=== PATIENT | male | born 1945 | race Caucasian/White ===

== ENCOUNTER 2020-10-07 10:13 | Observation (INO) | payer MEDICARE, BC ==
--- NOTE | 2020-10-07 10:28 | EDM.PDOC ---
ED HPI GENERAL MEDICAL PROBLEM - General Chief Complaint: Chest Pain Stated Complaint: CHEST PAIN Time Seen by Provider: 10/07/20 10:25 Source of Information: Reports: Patient History Limitations: Reports: No Limitations - History of Present Illness INITIAL COMMENTS - FREE TEXT/NARRATIVE: Patient is a 75-year-old male who presents today for left-sided chest pain. Patient is to get this morning he medical to the gym when he felt the pain in his chest rating to his left arm and left jaw. Patient she took Tylenol carvedilol and aspirin the pain subsided. Patient states that deep breath made the pain worse. Patient denies any current chest pain now fever chills nausea vomiting or complaints. Chest Pain Score (Numeric/FACES): 4 - Related Data Allergies Allergy/AdvReac Type Severity Reaction Status Date / Time venom-honey bee Allergy Swelling Verified 10/07/20 10:26 [bee venom (honey bee)] Home Meds: Home Meds Acetaminophen [Pain Reliever] 1 tab PO PRN 08/04/14 [History] EPINEPHrine [Epipen Jr 2-Stephen] 1 injection IM ASDIRECTED 08/04/14 [History] Multivitamin with Minerals [Multiple Vitamin] 1 tab PO DAILY 08/04/14 [History] Omeprazole [Prilosec] 1 tab PO DAILY PRN 08/04/14 [History] Aspirin [Children's Aspirin] 1 tab PO DAILY 04/02/16 [History] Ibuprofen 2 tab PO DAILY PRN 04/02/16 [History] Past Medical History HEENT History: Reports: Impaired Vision Gastrointestinal History: Reports: GERD Oncologic (Cancer) History: Reports: Prostate - Infectious Disease History Infectious Disease History: Reports: Mumps - Past Surgical History Male Surgical History: Reports: Prostatectomy Social & Family History - Family History Family Medical History: No Pertinent Family History - Caffeine Use Caffeine Use: Reports: Coffee ED ROS GENERAL - Review of Systems Review Of Systems: See Below Constitutional: Reports: No Symptoms HEENT: Reports: No Symptoms Respiratory: Reports: No Symptoms Cardiovascular: Reports: Chest Pain Endocrine: Reports: No Symptoms GI/Abdominal: Reports: No Symptoms : Reports: No Symptoms Musculoskeletal: Reports: No Symptoms Skin: Reports: No Symptoms Neurological: Reports: No Symptoms Psychiatric: Reports: No Symptoms Hematologic/Lymphatic: Reports: No Symptoms Immunologic: Reports: No Symptoms ED EXAM, GENERAL - Physical Exam Exam: See Below Exam Limited By: No Limitations General Appearance: Alert, WD/WN, No Apparent Distress Respiratory/Chest: No Respiratory Distress, Lungs Clear, Normal Breath Sounds Cardiovascular: Normal Peripheral Pulses, Regular Rate, Rhythm GI/Abdominal: Normal Bowel Sounds, Soft, Non-Tender Extremities: Normal Inspection Neurological: Alert, Oriented, CN II-XII Intact, Normal Cognition, Normal Gait #1 Interpretation EKG Date: 10/07/20 Time: 10:20 Rhythm: NSR Rate (Beats/Min): 58 QT: Normal Course - Vital Signs Last Recorded V/S: Last Vital Signs Temp 98.6 F 10/07/20 10:26 Pulse 59 L 10/07/20 11:22 Resp 16 10/07/20 11:22 BP 113/67 10/07/20 11:22 Pulse Ox 95 10/07/20 11:22 - Orders/Labs/Meds Orders: Active Orders 24 hr Category Date Time Status Patient Status [ADT] Routine ADT 10/07/20 11:53 Ordered CORONAVIRUS COVID-19 WALTER [MOLEC] Stat Lab 10/07/20 11:35 Received Labs: Laboratory Tests 10/07/20 10/07/20 10/07/20 Range/Units 10:50 10:50 10:50 WBC 3.73 L (4.0-11.0) K/uL RBC 4.58 (4.50-5.90) M/uL Hgb 14.5 (13.0-17.0) g/dL Hct 42.1 (38.0-50.0) % MCV 91.9 (80.0-98.0) fL MCH 31.7 (27.0-32.0) pg MCHC 34.4 (31.0-37.0) g/dL RDW Std Deviation 44.7 (28.0-62.0) fl RDW Coeff of Brenden 13 (11.0-15.0) % Plt Count 180 (150-400) K/uL MPV 9.40 (7.40-12.00) fL Add Manual Diff YES Neutrophils % (Manual) 54 (48.0-80.0) % Band Neutrophils % 2 % Lymphocytes % (Manual) 30 (16.0-40.0) % Monocytes % (Manual) 10 (0.0-15.0) % Eosinophils % (Manual) 2 (0.0-7.0) % Basophils % (Manual) 2 H (0.0-1.5) % Nucleated RBC % 0.0 /100WBC Absolute Seg Neuts 2.0 (1.4-5.7) Band Neutrophils # 0.1 Lymphocytes # (Manual) 1.1 (0.6-2.4) Monocytes # (Manual) 0.4 (0.0-0.8) Eosinophils # (Manual) 0.1 (0.0-0.7) Basophils # (Manual) 0.1 (0.0-0.1) Nucleated RBCs # 0 K/uL Platelet Estimate ADEQUATE Clumped Platelets FEW INR 1.04 APTT 25.2 (18.6-31.3) SEC Sodium 138 (136-148) mmol/L Potassium 4.4 (3.5-5.1) mmol/L Chloride 106 (98-107) mmol/L Carbon Dioxide 24.0 (21.0-32.0) mmol/L BUN 16 (7.0-18.0) mg/dL Creatinine 1.1 (0.8-1.3) mg/dL Est Cr Clr Drug Dosing 61.80 mL/min Estimated GFR (MDRD) > 60.0 ml/min Glucose 112 H (74-106) mg/dL Calcium 8.3 L (8.5-10.1) mg/dL Phosphorus 2.7 (2.6-4.7) mg/dL Magnesium 2.0 (1.8-2.4) mg/dL Total Bilirubin 0.5 (0.2-1.0) mg/dL AST 19 (15-37) IU/L ALT 21 (14-63) IU/L Alkaline Phosphatase 51 (46-116) U/L Creatine Kinase 99 (26-308) U/L Troponin I < 0.050 (0.000-0.056) ng/mL Total Protein 6.7 (6.4-8.2) g/dL Albumin 3.2 L (3.4-5.0) g/dL Globulin 3.5 (2.6-4.0) g/dL Albumin/Globulin Ratio 0.9 (0.9-1.6) Lipase 89 (73-393) U/L - Re-Assessments/Exams Free Text/Narrative Re-Assessment/Exam: 10/07/20 11:55 Patient initial tropes are negative. Patient remains chest free. Due to risk factors patient will be admitted for observation. Departure - Departure Time of Disposition: 11:54 Disposition: Admitted As Inpatient 66 Condition: Good Clinical Impression: Chest pain Instructions: Chest Wall Pain, [id number] Referrals: Benji Cassidy MD [Primary Care Provider] - Forms: ED Department Discharge Sepsis Event Note (ED) - Focused Exam Vital Signs: Vital Signs Temp Pulse Resp BP Pulse Ox 10/07/20 11:22 59 L 16 113/67 95 10/07/20 11:07 59 L 16 128/74 96 10/07/20 10:36 58 L 16 133/72 95 10/07/20 10:26 98.6 F 60 16 152/81 H 96 - My Orders Last 24 Hours: My Active Orders 10/07/20 11:35 CORONAVIRUS COVID-19 WALTER [MOLEC] Stat 10/07/20 11:53 Patient Status [ADT] Routine - Assessment/Plan Last 24 Hours: My Active Orders 10/07/20 11:35 CORONAVIRUS COVID-19 WALTER [MOLEC] Stat 10/07/20 11:53 Patient Status [ADT] Routine Plan: Patient is a 75-year-old male who presents today for left-sided chest pain radiating to his left arm. Patient currently has no chest pain. Score is a 5 just for story age and risk factors. Patient likely troponins and admission.
[2020-10-07 11:29] LABS: BLOOD UREA NITROGEN,BUN 16 mg/dL (7.0-18.0); CHLORIDE,CL 106 mmol/L (98-107); GLUCOSE RANDOM 112 mg/dL (74-106); LIPASE 89 U/L (73-393); POTASSIUM,K 4.4 mmol/L (3.5-5.1); SODIUM,NA 138 mmol/L (136-148)
--- NOTE | 2020-10-07 11:36 | CR ---
INDICATION: Left-sided chest pain TECHNIQUE: Chest 2 views COMPARISON: 12/14/2010 FINDINGS: Cardiovascular and mediastinum: Heart size and vasculature are normal in caliber and appearance. Lungs and pleural spaces: Lungs are clear. No sign of infiltrate or mass. No sign of pleural effusion. No pneumothorax. Bones and soft tissues: No acute findings. There are old left-sided rib fractures which are unchanged. IMPRESSION: No acute findings and no significant changes from the prior exam. Dictated by Luis Foreman MD @ Oct 07 2020 11:33AM Signed by Dr. Luis Foreman @ Oct 07 2020 11:35AM
[2020-10-07] MEDS ORDERED: Ondansetron 4 MG/2 ML SDV IVPUSH PRN (14:13)
[2020-10-07] MEDS ORDERED: Sodium Chloride 0.9% 2.5 ML Syringe FLUSH PRN (14:13)
[2020-10-07] MEDS ORDERED: Docusate Sodium 100 MG Cap PO PRN (14:13)
[2020-10-07 14:33] LABS: HEMOGLOBIN A1C 5.9 %
[2020-10-07] MEDS ORDERED: Fluticasone Propionate Nasal Spray 16 GM Bottle NASBOTH PRN (15:08)
[2020-10-07] MEDS ORDERED: Albuterol 8 GM Inhaler INH PRN (15:15)
--- NOTE | 2020-10-07 15:25 | PCM.HP.2 ---
H&P History of Present Illness - General Date of Service: 10/07/20 Admit Problem/Dx: Admission Diagnosis/Problem Admission Diagnosis/Problem Chest pain made worse by breathing Source of Information: Patient History Limitations: Reports: No Limitations - History of Present Illness Initial Comments - Free Text/Narative: This 75-year-old male with past medical history of GERD, prostate cancer status post prostatectomy, and COPD presented to the ER with complaints of left-sided chest pain. He reports that he woke up and started getting ready to go to the gym this morning when he started having left-sided chest pain that radiated to his left arm and left jaw. He reports this pain has been ongoing intermittently for the last couple weeks but felt today he needed to be evaluated. He reports the pain came on suddenly when he was at. Located in L upper chest. Some what reproducible with movement of L arm. Does not seem like it worsens with activity and has not noticed the chest pain while working out. He denies any shortness of breath nausea or diaphoresis. He reported that he just felt" off". He reports he had a stress test approximately 4 years ago and was sent to consumer affairs manager Dr. Neville who started him on a statin, aspirin and a beta- trish. He reports that he had calcium deposits noted in his arteries on heart scan. He reports he is currently chest pain-free. He recently had code vaccinations in both his left and right arm, no residual side effects. He denies any fevers chills neck pain. No palpitations or shortness of breath. No abdominal pain black or bloody bowel movements and no dysuria. He reports that he was a smoker for over 45 years but quit quite a few years back. Denies any recreational drug use or alcohol use. In the ER white count normal hemoglobin 14.5 hematocrit 42.1. Platelets 180,000. INR 1.04. Sodium 138 potassium 4.4. BUN 16 creatinine 1.1 calcium 8.3 phosphorus 2.7. Troponin negative lipase 89 Covid swab negative chest x-ray negative for any acute cardiopulmonary process. In the ER vitals were stable heart rates mid to high 50s blood pressures 120-140/70s. EKG sinus rhythm with no ST-T wave changes suggestive of ischemic changes. He will be admitted for chest pain rule out ACS. PCP Dr. Cassidy Viticulturist Dr. Neville Chest Pain Score (Numeric/FACES): 4 - Related Data Allergies/Adverse Reactions: Allergies Allergy/AdvReac Type Severity Reaction Status Date / Time Iodinated Contrast Media Allergy Rash Verified 10/07/20 15:25 venom-honey bee Allergy Swelling Verified 10/07/20 10:26 [bee venom (honey bee)] Home Medications: Home Meds Albuterol Sulfate [Albuterol Sulfate HFA] 1 puff INH ASDIRECTED 10/07/20 [History] Budesonide/Formoterol Fumarate [Budesonide-Formoterol 160-4.5] 1 puff INH BID 10/07/20 [History] Fluticasone Propionate 2 spray NASBOTH DAILY PRN 10/07/20 [History] Pravastatin [Pravachol] 20 mg PO BEDTIME 10/07/20 [History] carvediloL [Carvedilol] 3.125 mg PO BID 10/07/20 [History] Past Medical History HEENT History: Reports: Impaired Vision Cardiovascular History: Reports: High Cholesterol, Hypertension. Denies: Afib, Blood Clots/VTE/DVT, CAD, VT, Stents Respiratory History: Reports: COPD. Denies: Sleep Apnea (recent sleep study, did not need CPAP) Gastrointestinal History: Reports: GERD Genitourinary History: Reports: None Musculoskeletal History: Reports: Arthritis Neurological History: Reports: None. Denies: CVA, TIA Psychiatric History: Reports: None Endocrine/Metabolic History: Reports: None. Denies: Diabetes, Type II, Hypothyroidism Hematologic History: Reports: None Immunologic History: Reports: None Oncologic (Cancer) History: Reports: Prostate Dermatologic History: Reports: Eczema - Infectious Disease History Infectious Disease History: Reports: Chicken Pox, Mumps, Shingles - Past Surgical History HEENT Surgical History: Reports: Cataract Surgery Male Surgical History: Reports: Prostatectomy Endocrine Surgical History: Reports: None Neurological Surgical History: Reports: None Musculoskeletal Surgical History: Reports: None Dermatological Surgical History: Reports: None Social & Family History - Family History Family Medical History: No Pertinent Family History - Tobacco Use Tobacco Use Status *Q: Never Tobacco User Used Tobacco, but Quit: Yes Month/Year Tobacco Last Used: 1984 - Caffeine Use Caffeine Use: Reports: Coffee - Recreational Drug Use Recreational Drug Use: No H&P Review of Systems - Review of Systems: Review Of Systems: See Below General: Reports: No Symptoms. Denies: Fever, Chills, Malaise, Weakness HEENT: Reports: No Symptoms. Denies: Headaches, Sinus Congestion, Sore Throat, Vertigo Pulmonary: Reports: No Symptoms. Denies: Shortness of Breath Cardiovascular: Reports: Chest Pain (now chest pain free). Denies: Palpitations, Edema, Lightheadedness, Syncope Gastrointestinal: Reports: No Symptoms. Denies: Abdominal Pain, Black Stool, Bloody Stool, Nausea, Vomiting Genitourinary: Reports: No Symptoms. Denies: Dysuria, Frequency, Burning Musculoskeletal: Reports: No Symptoms. Denies: Neck Pain Skin: Reports: No Symptoms Psychiatric: Reports: No Symptoms. Denies: Confusion Neurological: Reports: No Symptoms. Denies: Confusion Hematologic/Lymphatic: Reports: No Symptoms Immunologic: Reports: No Symptoms Exam - Exam Exam: See Below - Vital Signs Vital Signs: Last Vital Signs Temp 96.9 F 10/07/20 14:13 Pulse 57 L 10/07/20 14:13 Resp 16 10/07/20 14:13 BP 147/85 H 10/07/20 14:13 Pulse Ox 98 10/07/20 14:13 Weight: 108.2 kg - Exam General: Alert, Oriented, Cooperative HEENT: Conjunctiva Clear, Mucosa Moist & [place], Posterior Pharynx Clear Lungs: Clear to Auscultation, Normal Respiratory Effort Cardiovascular: Regular Rate, Regular Rhythm, Normal S1, Normal S2. No: Irregular Rhythm, Systolic Murmur GI/Abdominal Exam: Normal Bowel Sounds, Soft, Non-Tender Extremities: Normal Inspection, Normal Range of Motion, Non-Tender, No Pedal Edema Skin: Warm, Dry Neuro Extensive - Mental Status: Alert, Oriented x3 Neuro Extensive - Motor, Sensory, Reflexes: CN II-XII Intact Psychiatric: Alert, Normal Affect, Normal Mood - Patient Data Lab Results Last 24 hrs: Laboratory Results - last 24 hr 10/07/20 10/07/20 10/07/20 Range/Units 10:50 10:50 10:50 WBC 3.73 L (4.0-11.0) K/uL RBC 4.58 (4.50-5.90) M/uL Hgb 14.5 (13.0-17.0) g/dL Hct 42.1 (38.0-50.0) % MCV 91.9 (80.0-98.0) fL MCH 31.7 (27.0-32.0) pg MCHC 34.4 (31.0-37.0) g/dL RDW Std Deviation 44.7 (28.0-62.0) fl RDW Coeff of Brenden 13 (11.0-15.0) % Plt Count 180 (150-400) K/uL MPV 9.40 (7.40-12.00) fL Add Manual Diff YES Neutrophils % (Manual) 54 (48.0-80.0) % Band Neutrophils % 2 % Lymphocytes % (Manual) 30 (16.0-40.0) % Monocytes % (Manual) 10 (0.0-15.0) % Eosinophils % (Manual) 2 (0.0-7.0) % Basophils % (Manual) 2 H (0.0-1.5) % Nucleated RBC % 0.0 /100WBC Absolute Seg Neuts 2.0 (1.4-5.7) Band Neutrophils # 0.1 Lymphocytes # (Manual) 1.1 (0.6-2.4) Monocytes # (Manual) 0.4 (0.0-0.8) Eosinophils # (Manual) 0.1 (0.0-0.7) Basophils # (Manual) 0.1 (0.0-0.1) Nucleated RBCs # 0 K/uL Platelet Estimate ADEQUATE Clumped Platelets FEW INR 1.04 APTT 25.2 (18.6-31.3) SEC Sodium 138 (136-148) mmol/L Potassium 4.4 (3.5-5.1) mmol/L Chloride 106 (98-107) mmol/L Carbon Dioxide 24.0 (21.0-32.0) mmol/L BUN 16 (7.0-18.0) mg/dL Creatinine 1.1 (0.8-1.3) mg/dL Est Cr Clr Drug Dosing 61.80 mL/min Estimated GFR (MDRD) > 60.0 ml/min Glucose 112 H (74-106) mg/dL Hemoglobin A1c (4.5 - 6.2) % Calcium 8.3 L (8.5-10.1) mg/dL Phosphorus 2.7 (2.6-4.7) mg/dL Magnesium 2.0 (1.8-2.4) mg/dL Total Bilirubin 0.5 (0.2-1.0) mg/dL AST 19 (15-37) IU/L ALT 21 (14-63) IU/L Alkaline Phosphatase 51 (46-116) U/L Creatine Kinase 99 (26-308) U/L Troponin I < 0.050 (0.000-0.056) ng/mL Total Protein 6.7 (6.4-8.2) g/dL Albumin 3.2 L (3.4-5.0) g/dL Globulin 3.5 (2.6-4.0) g/dL Albumin/Globulin Ratio 0.9 (0.9-1.6) Lipase 89 (73-393) U/L SARS-CoV-2 RNA ([facility]TER) (NEGATIVE) 10/07/20 10/07/20 10/07/20 Range/Units 10:50 11:35 13:51 WBC (4.0-11.0) K/uL RBC (4.50-5.90) M/uL Hgb (13.0-17.0) g/dL Hct (38.0-50.0) % MCV (80.0-98.0) fL MCH (27.0-32.0) pg MCHC (31.0-37.0) g/dL RDW Std Deviation (28.0-62.0) fl RDW Coeff of Brenden (11.0-15.0) % Plt Count (150-400) K/uL MPV (7.40-12.00) fL Add Manual Diff Neutrophils % (Manual) (48.0-80.0) % Band Neutrophils % % Lymphocytes % (Manual) (16.0-40.0) % Monocytes % (Manual) (0.0-15.0) % Eosinophils % (Manual) (0.0-7.0) % Basophils % (Manual) (0.0-1.5) % Nucleated RBC % /100WBC Absolute Seg Neuts (1.4-5.7) Band Neutrophils # Lymphocytes # (Manual) (0.6-2.4) Monocytes # (Manual) (0.0-0.8) Eosinophils # (Manual) (0.0-0.7) Basophils # (Manual) (0.0-0.1) Nucleated RBCs # K/uL Platelet Estimate Clumped Platelets INR APTT (18.6-31.3) SEC Sodium (136-148) mmol/L Potassium (3.5-5.1) mmol/L Chloride (98-107) mmol/L Carbon Dioxide (21.0-32.0) mmol/L BUN (7.0-18.0) mg/dL Creatinine (0.8-1.3) mg/dL Est Cr Clr Drug Dosing mL/min Estimated GFR (MDRD) ml/min Glucose (74-106) mg/dL Hemoglobin A1c 5.9 (4.5 - 6.2) % Calcium (8.5-10.1) mg/dL Phosphorus (2.6-4.7) mg/dL Magnesium (1.8-2.4) mg/dL Total Bilirubin (0.2-1.0) mg/dL AST (15-37) IU/L ALT (14-63) IU/L Alkaline Phosphatase (46-116) U/L Creatine Kinase 98 (26-308) U/L Troponin I < 0.050 (0.000-0.056) ng/mL Total Protein (6.4-8.2) g/dL Albumin (3.4-5.0) g/dL Globulin (2.6-4.0) g/dL Albumin/Globulin Ratio (0.9-1.6) Lipase (73-393) U/L SARS-CoV-2 RNA (WALTER) NEGATIVE (NEGATIVE) Result Diagrams: 10/07/20 10:50 10/07/20 10:50 Sepsis Event Note - Evaluation Sepsis Screening Result: No Definite Risk - Focused Exam Vital Signs: Vital Signs Temp Pulse Resp BP Pulse Ox 10/07/20 14:13 96.9 F 57 L 16 147/85 H 98 10/07/20 13:30 96.9 F 52 L 18 147/71 H 97 10/07/20 12:23 52 L 16 122/68 94 L 10/07/20 11:46 54 L 16 127/71 94 L 10/07/20 11:22 59 L 16 113/67 95 10/07/20 11:07 59 L 16 128/74 96 10/07/20 10:36 58 L 16 133/72 95 10/07/20 10:26 98.6 F 60 16 152/81 H 96 - Problem List (1) Chest pain SNOMED Code(s): 93727548 ICD Code: R07.9 - CHEST PAIN, UNSPECIFIED Status: Acute Current Visit: Yes (2) HTN (hypertension) SNOMED Code(s): 26390900 ICD Code: I10 - ESSENTIAL (PRIMARY) HYPERTENSION Status: Chronic Current Visit: Yes (3) HLD (hyperlipidemia) SNOMED Code(s): 23632509 ICD Code: E78.5 - HYPERLIPIDEMIA, UNSPECIFIED Status: Chronic Current Visit: Yes (4) COPD (chronic obstructive pulmonary disease) SNOMED Code(s): 11541448 ICD Code: J44.9 - CHRONIC OBSTRUCTIVE PULMONARY DISEASE, UNSPECIFIED Status: Chronic Current Visit: Yes (5) GERD (gastroesophageal reflux disease) SNOMED Code(s): 034390478 ICD Code: K21.9 - GASTRO-ESOPHAGEAL REFLUX DISEASE WITHOUT ESOPHAGITIS Status: Chronic Current Visit: Yes Problem List Initiated/Reviewed/Updated: Yes Orders Last 24hrs: Active Orders 24 hr Category Date Time Status Patient Status [ADT] Routine ADT 10/07/20 11:53 Active Antiembolic Devices [RC] PER UNIT ROUTINE Care 10/07/20 14:14 Active Intake and Output [RC] Q12H Care 10/07/20 14:13 Active Telemetry Monitoring [Cardiac Monitoring] [RC] Q8H Care 10/07/20 14:12 Active Up With Assistance [RC] ASDIRECTED Care 10/07/20 14:13 Active VTE/DVT Education [RC] PER UNIT ROUTINE Care 10/07/20 14:13 Active Vital Signs [RC] Q4H Care 10/07/20 14:13 Active Heart Healthy Diet [DIET] Diet 10/07/20 Lunch Active BASIC METABOLIC PANEL,BMP [CHEM] AM Lab 10/08/20 05:11 Ordered CBC WITH AUTO DIFF [HEME] AM Lab 10/08/20 05:11 Ordered LIPID PANEL [CHEM] AM Lab 10/08/20 05:11 Ordered MAGNESIUM [CHEM] AM Lab 10/08/20 05:11 Ordered Acetaminophen [TylenoL] Med 10/07/20 14:13 Active 650 mg PO Q4H PRN Albuterol Sulfate Med 10/07/20 15:15 Ordered 1 puff INH ASDIRECTED Aspirin [Halfprin] Med 10/08/20 09:00 Ordered 81 mg PO DAILY Docusate Sodium [Colace] Med 10/07/20 14:13 Active 100 mg PO BID PRN Fluticasone Propionate [Flonase] Med 10/07/20 15:08 Ordered 2 spray NASBOTH DAILY PRN Ondansetron [Zofran] Med 10/07/20 14:13 Active 4 mg IVPUSH Q4H PRN Pravastatin Med 10/07/20 21:00 Ordered 20 mg PO BEDTIME Sodium Chloride 0.9% [Saline Flush] Med 10/07/20 14:13 Active 2.5 ml FLUSH ASDIRECTED PRN carvediloL [Coreg] Med 10/07/20 21:00 Ordered 3.125 mg PO BID Saline Lock Insert [OM.PC] Routine Oth 10/07/20 14:13 Ordered Sequential Compression Device [OM.PC] Per Unit Routine Oth 10/07/20 14:13 Ordered Resuscitation Status Routine Resus Stat 10/07/20 15:08 Ordered Medication Orders Acetaminophen (Acetaminophen 325 Mg Tab) 650 mg PO Q4H PRN PRN Reason: Pain (Mild 1-3)/fever Aspirin (Aspirin 81 Mg Tab.Ec) 81 mg PO DAILY [place] Carvedilol (Carvedilol 3.125 Mg Tab) 3.125 mg PO BID [place] Docusate Sodium (Docusate Sodium 100 Mg Cap) 100 mg PO BID PRN PRN Reason: Constipation Fluticasone Propionate (Fluticasone Propionate Nasal [place] 16 Gm Bottle) gm NASBOTH DAILY PRN PRN Reason: Allergies Non-Formulary Medication (Pravastatin) 20 mg PO BEDTIME [place] Non-Formulary Medication (Albuterol Sulfate) 1 puff INH ASDIRECTED [place] Ondansetron HCl (Ondansetron 4 Mg/2 Ml Sdv) 4 mg IVPUSH Q4H PRN PRN Reason: Nausea Sodium Chloride (Sodium Chloride 0.9% 2.5 Ml Syringe) 2.5 ml FLUSH ASDIRECTED PRN PRN Reason: Keep Vein Open Assessment/Plan Comment:: This 75-year-old male admitted with chest pain rule out ACS 1. Chest pain -Monitor on telemetry -Trend troponins, negative x2 so far -Obtain lipid panel in am and A1c 5.9 -Stress test as outpatient ordered -Continue aspirin, carvedilol and pravastatin 2. Hypertension -Continue carvedilol 3. COPD -Does not take twice daily inhaler anymore only uses rescue inhaler as needed. -Follows up with pulmonology in the coming weeks. VTE prophylaxis: SCDs and ambulation CODE STATUS: Full code Dispo: Possible in a.m.
[2020-10-07] MEDS ORDERED: Pravastatin 40 MG Tab PO SCH (21:00)
[2020-10-07] MEDS: Carvedilol 3.125 MG Tab PO SCH (21:21)
[2020-10-07] MEDS: Acetaminophen 325 MG Tab PO PRN (21:27)
[2020-10-08 07:16] VITALS: PULSE 56
[2020-10-08 07:37] LABS: BLOOD UREA NITROGEN,BUN 14 mg/dL (7.0-18.0); CHLORIDE,CL 108 mmol/L (98-107); GLUCOSE RANDOM 113 mg/dL (74-106); POTASSIUM,K 4.2 mmol/L (3.5-5.1); SODIUM,NA 140 mmol/L (136-148)
[2020-10-08] MEDS: Acetaminophen 325 MG Tab PO PRN (07:40)
[2020-10-08 07:42] LABS: CARBON DIOXIDE,CO2 25.1 mmol/L (21.0-32.0)
[2020-10-08] MEDS ORDERED: Aspirin 81 MG Tab.EC PO SCH (09:00)
[2020-10-08] MEDS: Carvedilol 3.125 MG Tab PO SCH (09:01)
--- NOTE | 2020-10-08 11:21 | PCM.DCSUM1 ---
Discharge Summary - Discharge Data Discharge Date: 10/08/20 Discharge Disposition: Home, Self-Care 01 Condition: Good - Referral to Home Health Primary Care Physician: Benji Cassidy MD - Patient Summary/Data Hospital Course: 75 yo male who presented with chest pain that radiated to jaw. He was admitted for ACS rule out. He ruled out for acute coronary syndrom with serial negative cardiac enzymes and EKG. He had no events on telemetry overnight and chest pain resolved. He was discharged home to have follow up with Dr. Cassidy. He was referred to outpatient stress testing. - Patient Instructions Diet: Usual Diet as Tolerated Activity: As Tolerated, No Strenuous Activities Notify Provider of: Increased Pain - Discharge Plan Home Medications: Home Meds Albuterol Sulfate [Albuterol Sulfate HFA] 1 puff INH ASDIRECTED 10/07/20 [History] Budesonide/Formoterol Fumarate [Budesonide-Formoterol 160-4.5] 1 puff INH BID 10/07/20 [History] Fluticasone Propionate 2 spray NASBOTH DAILY PRN 10/07/20 [History] Pravastatin [Pravachol] 20 mg PO BEDTIME 10/07/20 [History] carvediloL [Carvedilol] 3.125 mg PO BID 10/07/20 [History] Patient Handouts: Chest Wall Pain, [id number] Forms: ED Department Discharge Referrals: Carey Neville MD [Ordering Only Provider] - 10/29/20 3:00 pm Benji Cassidy MD [Primary Care Provider] - 10/23/20 8:30 am - Discharge Summary/Plan Comment DC Time >30 min.: No - Patient Data Vitals - Most Recent: Last Vital Signs Temp 36.2 C 10/08/20 07:13 Pulse 56 L 10/08/20 09:01 Resp 16 10/08/20 07:13 BP 130/75 10/08/20 09:01 Pulse Ox 93 L 10/08/20 07:13 Weight - Most Recent: 108.2 kg I&O - Last 24 hours: Intake & Output 10/07/20 10/08/20 10/08/20 22:59 06:59 14:59 Intake Total 500 1200 Output Total 1800 Balance 500 -600 Lab Results - Last 24 hrs: Laboratory Results - last 24 hr 10/07/20 10/07/20 10/07/20 Range/Units 10:50 10:50 10:50 WBC (4.0-11.0) K/uL RBC (4.50-5.90) M/uL Hgb (13.0-17.0) g/dL Hct (38.0-50.0) % MCV (80.0-98.0) fL MCH (27.0-32.0) pg MCHC (31.0-37.0) g/dL RDW Std Deviation (28.0-62.0) fl RDW Coeff of Brenden (11.0-15.0) % Plt Count (150-400) K/uL MPV (7.40-12.00) fL Neut % (Auto) (48.0-80.0) % Lymph % (Auto) (16.0-40.0) % [place] % (Auto) (0.0-15.0) % Eos % (Auto) (0.0-7.0) % Baso % (Auto) (0.0-1.5) % Neut # (Auto) (1.4-5.7) K/uL Lymph # (Auto) (0.6-2.4) K/uL [place] # (Auto) (0.0-0.8) K/uL Eos # (Auto) (0.0-0.7) K/uL Baso # (Auto) (0.0-0.1) K/uL Neutrophils % (Manual) 54 (48.0-80.0) % Band Neutrophils % 2 % Lymphocytes % (Manual) 30 (16.0-40.0) % Monocytes % (Manual) 10 (0.0-15.0) % Eosinophils % (Manual) 2 (0.0-7.0) % Basophils % (Manual) 2 H (0.0-1.5) % Nucleated RBC % /100WBC Absolute Seg Neuts 2.0 (1.4-5.7) Band Neutrophils # 0.1 Lymphocytes # (Manual) 1.1 (0.6-2.4) Monocytes # (Manual) 0.4 (0.0-0.8) Eosinophils # (Manual) 0.1 (0.0-0.7) Basophils # (Manual) 0.1 (0.0-0.1) Nucleated RBCs # K/uL Platelet Estimate ADEQUATE Clumped Platelets FEW Sodium 138 (136-148) mmol/L Potassium 4.4 (3.5-5.1) mmol/L Chloride 106 (98-107) mmol/L Carbon Dioxide 24.0 (21.0-32.0) mmol/L BUN 16 (7.0-18.0) mg/dL Creatinine 1.1 (0.8-1.3) mg/dL Est Cr Clr Drug Dosing 61.80 mL/min Estimated GFR (MDRD) > 60.0 ml/min Glucose 112 H (74-106) mg/dL Hemoglobin A1c 5.9 (4.5 - 6.2) % Calcium 8.3 L (8.5-10.1) mg/dL Phosphorus 2.7 (2.6-4.7) mg/dL Magnesium 2.0 (1.8-2.4) mg/dL Total Bilirubin 0.5 (0.2-1.0) mg/dL AST 19 (15-37) IU/L ALT 21 (14-63) IU/L Alkaline Phosphatase 51 (46-116) U/L Creatine Kinase 99 (26-308) U/L Troponin I < 0.050 (0.000-0.056) ng/mL Total Protein 6.7 (6.4-8.2) g/dL Albumin 3.2 L (3.4-5.0) g/dL Globulin 3.5 (2.6-4.0) g/dL Albumin/Globulin Ratio 0.9 (0.9-1.6) Triglycerides (0-200) mg/dL Cholesterol (50-200) mg/dL LDL Cholesterol, Calc (60-180) mg/dL VLDL Cholesterol (5-55) mg/dL HDL Cholesterol (40-60) mg/dL Cholesterol/HDL Ratio (3.3-6.0) Lipase 89 (73-393) U/L SARS-CoV-2 RNA ([facility]TER) (NEGATIVE) 10/07/20 10/07/20 10/07/20 Range/Units 11:35 13:51 19:54 WBC (4.0-11.0) K/uL RBC (4.50-5.90) M/uL Hgb (13.0-17.0) g/dL Hct (38.0-50.0) % MCV (80.0-98.0) fL MCH (27.0-32.0) pg MCHC (31.0-37.0) g/dL RDW Std Deviation (28.0-62.0) fl RDW Coeff of Brenden (11.0-15.0) % Plt Count (150-400) K/uL MPV (7.40-12.00) fL Neut % (Auto) (48.0-80.0) % Lymph % (Auto) (16.0-40.0) % [place] % (Auto) (0.0-15.0) % Eos % (Auto) (0.0-7.0) % Baso % (Auto) (0.0-1.5) % Neut # (Auto) (1.4-5.7) K/uL Lymph # (Auto) (0.6-2.4) K/uL [place] # (Auto) (0.0-0.8) K/uL Eos # (Auto) (0.0-0.7) K/uL Baso # (Auto) (0.0-0.1) K/uL Neutrophils % (Manual) (48.0-80.0) % Band Neutrophils % % Lymphocytes % (Manual) (16.0-40.0) % Monocytes % (Manual) (0.0-15.0) % Eosinophils % (Manual) (0.0-7.0) % Basophils % (Manual) (0.0-1.5) % Nucleated RBC % /100WBC Absolute Seg Neuts (1.4-5.7) Band Neutrophils # Lymphocytes # (Manual) (0.6-2.4) Monocytes # (Manual) (0.0-0.8) Eosinophils # (Manual) (0.0-0.7) Basophils # (Manual) (0.0-0.1) Nucleated RBCs # K/uL Platelet Estimate Clumped Platelets Sodium (136-148) mmol/L Potassium (3.5-5.1) mmol/L Chloride (98-107) mmol/L Carbon Dioxide (21.0-32.0) mmol/L BUN (7.0-18.0) mg/dL Creatinine (0.8-1.3) mg/dL Est Cr Clr Drug Dosing mL/min Estimated GFR (MDRD) ml/min Glucose (74-106) mg/dL Hemoglobin A1c (4.5 - 6.2) % Calcium (8.5-10.1) mg/dL Phosphorus (2.6-4.7) mg/dL Magnesium (1.8-2.4) mg/dL Total Bilirubin (0.2-1.0) mg/dL AST (15-37) IU/L ALT (14-63) IU/L Alkaline Phosphatase (46-116) U/L Creatine Kinase 98 (26-308) U/L Troponin I < 0.050 < 0.050 (0.000-0.056) ng/mL Total Protein (6.4-8.2) g/dL Albumin (3.4-5.0) g/dL Globulin (2.6-4.0) g/dL Albumin/Globulin Ratio (0.9-1.6) Triglycerides (0-200) mg/dL Cholesterol (50-200) mg/dL LDL Cholesterol, Calc (60-180) mg/dL VLDL Cholesterol (5-55) mg/dL HDL Cholesterol (40-60) mg/dL Cholesterol/HDL Ratio (3.3-6.0) Lipase (73-393) U/L SARS-CoV-2 RNA (WALTER) NEGATIVE (NEGATIVE) 10/08/20 10/08/20 Range/Units 07:09 07:09 WBC 3.94 L (4.0-11.0) K/uL RBC 4.44 L (4.50-5.90) M/uL Hgb 14.1 (13.0-17.0) g/dL Hct 40.8 (38.0-50.0) % MCV 91.9 (80.0-98.0) fL MCH 31.8 (27.0-32.0) pg MCHC 34.6 (31.0-37.0) g/dL RDW Std Deviation 44.0 (28.0-62.0) fl RDW Coeff of Brenden 13 (11.0-15.0) % Plt Count 161 (150-400) K/uL MPV 9.20 (7.40-12.00) fL Neut % (Auto) 51.8 (48.0-80.0) % Lymph % (Auto) 28.4 (16.0-40.0) % [place] % (Auto) 15.7 H (0.0-15.0) % Eos % (Auto) 3.3 (0.0-7.0) % Baso % (Auto) 0.8 (0.0-1.5) % Neut # (Auto) 2.0 (1.4-5.7) K/uL Lymph # (Auto) 1.1 (0.6-2.4) K/uL [place] # (Auto) 0.6 (0.0-0.8) K/uL Eos # (Auto) 0.1 (0.0-0.7) K/uL Baso # (Auto) 0.0 (0.0-0.1) K/uL Neutrophils % (Manual) (48.0-80.0) % Band Neutrophils % % Lymphocytes % (Manual) (16.0-40.0) % Monocytes % (Manual) (0.0-15.0) % Eosinophils % (Manual) (0.0-7.0) % Basophils % (Manual) (0.0-1.5) % Nucleated RBC % 0.0 /100WBC Absolute Seg Neuts (1.4-5.7) Band Neutrophils # Lymphocytes # (Manual) (0.6-2.4) Monocytes # (Manual) (0.0-0.8) Eosinophils # (Manual) (0.0-0.7) Basophils # (Manual) (0.0-0.1) Nucleated RBCs # 0 K/uL Platelet Estimate Clumped Platelets Sodium 140 (136-148) mmol/L Potassium 4.2 (3.5-5.1) mmol/L Chloride 108 H (98-107) mmol/L Carbon Dioxide 25.1 (21.0-32.0) mmol/L BUN 14 (7.0-18.0) mg/dL Creatinine 1.1 (0.8-1.3) mg/dL Est Cr Clr Drug Dosing 61.80 mL/min Estimated GFR (MDRD) > 60.0 ml/min Glucose 113 H (74-106) mg/dL Hemoglobin A1c (4.5 - 6.2) % Calcium 8.1 L (8.5-10.1) mg/dL Phosphorus (2.6-4.7) mg/dL Magnesium 2.1 (1.8-2.4) mg/dL Total Bilirubin (0.2-1.0) mg/dL AST (15-37) IU/L ALT (14-63) IU/L Alkaline Phosphatase (46-116) U/L Creatine Kinase (26-308) U/L Troponin I (0.000-0.056) ng/mL Total Protein (6.4-8.2) g/dL Albumin (3.4-5.0) g/dL Globulin (2.6-4.0) g/dL Albumin/Globulin Ratio (0.9-1.6) Triglycerides 61 (0-200) mg/dL Cholesterol 123 (50-200) mg/dL LDL Cholesterol, Calc 72 (60-180) mg/dL VLDL Cholesterol 12 (5-55) mg/dL HDL Cholesterol 39 L (40-60) mg/dL Cholesterol/HDL Ratio 3.2 L (3.3-6.0) Lipase (73-393) U/L SARS-CoV-2 RNA ([facility]TER) (NEGATIVE) Med Orders - Current: Current Medications Acetaminophen (Acetaminophen 325 Mg Tab) 650 mg PO Q4H PRN PRN Reason: Pain (Mild 1-3)/fever Last Admin: 10/08/20 07:40 Dose: 650 mg Documented by: Albuterol (Albuterol 8 Gm Inhaler) 0 gm INH Q4H PRN PRN Reason: Shortness of Breath Aspirin (Aspirin 81 Mg Tab.Ec) 81 mg PO DAILY [facility] Last Admin: 10/08/20 09:01 Dose: 81 mg Documented by: Carvedilol (Carvedilol 3.125 Mg Tab) 3.125 mg PO BID [facility] Last Admin: 10/08/20 09:01 Dose: 3.125 mg Documented by: Docusate Sodium (Docusate Sodium 100 Mg Cap) 100 mg PO BID PRN PRN Reason: Constipation Fluticasone Propionate (Fluticasone Propionate Nasal [place]ater 16 Gm Bottle) 0 gm NASBOTH DAILY PRN PRN Reason: Allergies Ondansetron HCl (Ondansetron 4 Mg/2 Ml Sdv) 4 mg IVPUSH Q4H PRN PRN Reason: Nausea Pravastatin Sodium (Pravastatin 40 Mg Tab) 20 mg PO BEDTIME [facility] Last Admin: 10/07/20 21:22 Dose: 20 mg Documented by: Sodium Chloride (Sodium Chloride 0.9% 2.5 Ml Syringe) 2.5 ml FLUSH ASDIRECTED PRN PRN Reason: Keep Vein Open
[2020-10-08 12:25] VITALS: BP 131/74
== END 2020-10-08 13:40 | disposition home or self-care (01) ==
LOC: MW.ED 10:13 → MW.MS 12:13
PROVIDERS: ADMIT Internal Medicine; ATTEND Internal Medicine
DX: R07.89 Other chest pain (principal); K21.9 Gastro-esophageal reflux disease without esophagitis; J44.9 Chronic obstructive pulmonary disease, unspecified; E78.00 Pure hypercholesterolemia, unspecified; I10 Essential (primary) hypertension; E78.5 Hyperlipidemia, unspecified; Z01.812 Encounter for preprocedural laboratory examination; Z20.822 Contact with and (suspected) exposure to COVID-19; Z85.46 Personal history of malignant neoplasm of prostate; Z91.041 Radiographic dye allergy status; Z91.030 Bee allergy status; Z98.890 Other specified postprocedural states
CPT/HCPCS: 36415; 71046; 80048; 80053; 80061; 82550; 83036; 83690; 83735; 84100; 84484; 85025; 85610; 85730; 93005; 99285; A9270; G0378; U0002; 93010; 99283